=== PATIENT | male | born 1965 | race Caucasian/White ===

== ENCOUNTER 2021-03-21 12:03 | Emergency (ER) | payer OTHER, SELFPAY ==
--- NOTE | ~2021-03-21 | XR_ITS ---
EXAMINATION: XR chest 2V DATE: 03/21/2021 12:27 INDICATION: Cough and congestion TECHNIQUE: PA and lateral views of the chest are obtained. COMPARISON: 02/08/2019 FINDINGS: The lungs are free of acute opacities. There is no pleural effusion or pneumothorax. The ca rdiomediastinal silhouette is normal. There is mild thoracic spondylosis. IMPRESSION: 1. No acute cardiopulmonary abnormality. Reviewed, dictated and finalized at location A. TENDER
[2021-03-21 12:10] VITALS: BP 151/85; PULSE 103; RESP 20; TEMP 37.5; O2SAT 99
--- NOTE | 2021-03-21 12:14 | ED.URI ---
HPI - URI/Sore Throat General Chief Complaint: Upper Respiratory Infection Stated Complaint: Cough/Chest Congestion Time Seen by Provider: 03/21/21 12:17 Source: patient and family History of Present Illness HPI Narrative: patient presents with a cough. cough is worse at night. Patient had Covid last month and can not get rid of his cough. No shortness of breath and no chest pain. PCP prescribed Tessalon pearls with minimal improvement in cough. Related Data Home Medications Medication Instructions Recorded Confirmed atorvastatin 03/21/21 trazodone 100 mg PO HS 03/21/21 03/21/21 venlafaxine 75 mg PO DAILY 03/21/21 03/21/21 Allergies Allergy/AdvReac Type Severity Reaction Status Date / Time No Known Allergies Allergy Verified 03/21/21 12:36 Review of Systems Review of Systems: CONSTITUTIONAL: Denies fever, chills, or sweats. EYES: Denies visual changes, redness, or discharge. ENT: Denies rhinorrhea, congestion, sore throat, or otalgia. CARDIOVASCULAR: Denies chest pain, palpitations, or edema. RESPIRATORY: Denies cough or dyspnea. GASTROINTESTINAL: Denies abdominal pain, nausea, vomiting, or diarrhea. GENITOURINARY: Denies dysuria or hematuria. SKIN: Denies rash or itching. MUSCULOSKELETAL: Denies back pain, joint pain, or myalgia. NEUROLOGIC: Denies headache, numbness, or weakness. PSYCHIATRIC: Denies anxiety or depression. [facility] Past Medical History Medical History (Updated 03/21/21 @ 12:21 by HAO Hubbard) Encounter for general adult medical examination without abnormal findings Essential (primary) hypertension ESTRELLITA (generalized anxiety disorder) Hypertriglyceridemia Insomnia Labral tear of shoulder, degenerative Osteoarthritis of right acromioclavicular joint Panic attack Partial tear of right rotator cuff Psychophysiological insomnia Surgical History Surgical History History of removal of cyst Family History Family History (Updated 09/22/20 @ 16:22 by Nabila Mercado, PATucker) Sibling Hypertension Patient's brother is Heart disease Mother Patient's mother is in good health Father Family history of malignant neoplasm, Onset Age: 65 Patient's father is Leukemia Hypertension Diabetes mellitus Social History Social History Social History: Second hand tobacco smoke exposure: No Alcohol intake: current Drinks per week: 1 Substance use: never Substance use type: does not use Gender identity (if verbalized by the patient): Male Sexual Orientation (if Verbalized by the Patient): Straight or Heterosexual Comments At time of signature, agree with nursing past medical, surgical, social and family history. There is no relevant family history pertinent to the presenting complaint Exam Narrative: GENERAL: Well-appearing, well-nourished, and in no acute distress. HEAD: Normocephalic, atraumatic. EYES: PERRLA and EOMI. ENT: Nares clear, no rhinorrhea or epistaxis. Mucous membranes moist. NECK: Supple. CHEST: Clear to auscultation. No respiratory distress. HEART: Regular rate and rhythm. No murmur heard. Normal peripheral pulses. ABDOMEN: Soft, nontender, nondistended, normal active bowel sounds. EXTREMITIES: Normal range of motion. No edema. SKIN: Warm, dry, no rash. NEURO: No focal deficits. Alert and oriented x3. [place] Coma Scale Eye Opening: Spontaneous 4 June Coma Scale Motor: Obeys Commands 6 [place] Coma Scale Verbal: Oriented 5 June Coma Scale Total 15 Course Course Level of Care: Express Care Visit Vital Signs Vital signs: Vital Signs Temperature 37.5 C 03/21/21 12:10 Pulse Rate 103 H 03/21/21 12:10 Respiratory Rate 20 03/21/21 12:10 Blood Pressure 151/85 H 03/21/21 12:10 Pulse Oximetry 99 03/21/21 12:10 Temperature 37.5 C 03/21/21 12:10 Pulse Rate
== END 2021-03-21 13:05 | disposition home or self-care (01) ==
PROVIDERS: Emergency Provider Nurse Practitioner Family; PCP Family Medicine
DX: J40 Bronchitis, not specified as acute or chronic (principal); I10 Essential (primary) hypertension; F41.1 Generalized anxiety disorder
CPT/HCPCS: 71046; 99213; G0463

== ENCOUNTER 2022-10-26 10:49 | Emergency (ER) | payer OTHER, SELFPAY ==
[2022-10-26 10:55] VITALS: BP 147/95; PULSE 74; RESP 20; TEMP 36.8; O2SAT 100
--- NOTE | 2022-10-26 11:03 | ED.ANIMALBIT ---
HPI - Animal Bite General Chief Complaint: Animal Bite Stated Complaint: dog bite left index finger Source: patient and RN notes reviewed Mode of arrival: ambulatory Limitations: no limitations History of Present Illness HPI narrative: Patient is a 57-year-old male who presents to the [facility] with complaints of dog bite to his left 2nd finger. Patient states that he was taking his son's dog up from the kennel when the dog got to fight with another dog. Patient states that he attempted to break up the 2 dogs, but was bitten by his son's dog on his left 2nd finger. This incident occurred Tuesday morning at 10:00 a.m.. Patient states that he had some leftover penicillin at his house and has taken 5 doses since the incident. States that the dog's shots are up-to-date. He presents with a 2 cm laceration to the proximal phalanx of the left 2nd digit. There is no active bleeding. There is surrounding erythema and swelling. Patient denies recent fevers. Related Data Home Medications Medication Instructions Recorded Confirmed gabapentin 100 mg capsule 100 mg PO TID 10/26/22 10/26/22 meloxicam 15 mg tablet 15 mg PO DAILY 10/26/22 10/26/22 tizanidine 2 mg tablet 2 mg PO Q6-8H PRN MUSCLE SPASMS 10/26/22 10/26/22 venlafaxine 75 mg capsule,extended 75 mg PO BID 10/26/22 10/26/22 release 24 hr Allergies Allergy/AdvReac Type Severity Reaction Status Date / Time No Known Allergies Allergy Verified 10/26/22 11:09 Review of Systems Review of Systems: CONSTITUTIONAL: Denies fever, chills, or sweats. EYES: Denies visual changes, redness, or discharge. ENT: Denies otalgia and sore throat CARDIOVASCULAR: Denies chest pain, palpitations, or edema. RESPIRATORY: Denies cough or dyspnea. GASTROINTESTINAL: Denies abdominal pain, nausea, vomiting, or diarrhea. GENITOURINARY: Denies dysuria or hematuria. SKIN: Denies rash or itching. Reports dog bite to left 2nd finger. MUSCULOSKELETAL: Denies back pain, joint pain, or myalgia. NEUROLOGIC: Denies headache, numbness, or weakness. Pertinent positives per HPI. [facility] Past Medical History Medical History Encounter for general adult medical examination without abnormal findings Essential (primary) hypertension ESTRELLITA (generalized anxiety disorder) Hypertriglyceridemia Insomnia Labral tear of shoulder, degenerative Osteoarthritis of right acromioclavicular joint Panic attack Partial tear of right rotator cuff Psychophysiological insomnia Surgical History Surgical History History of removal of cyst Family History Family History Sibling Hypertension Patient's brother is Heart disease Mother Patient's mother is in good health Father Family history of malignant neoplasm, Onset Age: 65 Patient's father is Leukemia Hypertension Diabetes mellitus Social History Social History Social History: Smoking status: Current every day smoker Second hand tobacco smoke exposure: No Alcohol intake: current Drinks per week: 1 Substance use: never Substance use type: does not use Living arrangements: with family Occupation/Education: occupation Gender identity (if verbalized by the patient): Male Sexual Orientation (if Verbalized by the Patient): Straight or Heterosexual Comments At the time of my signature, I reviewed and agree with the nursing past medical, surgical, social, and family history. There is no relevant family history pertinent to the patient complaint. Exam Narrative: GENERAL: This is a well-nourished, well-developed patient, in no apparent distress. HEAD: normocephalic, atraumatic. EYES: Sclera clear/white. Vision is grossly intact. EARS: External ears normal. Hear
== END 2022-10-26 11:20 | disposition home or self-care (01) ==
PROVIDERS: Emergency Provider Nurse Practitioner
DX: S61.211A Laceration without foreign body of left index finger without damage to nail, initial encounter (principal); W54.0XXA Bitten by dog, initial encounter; F17.200 Nicotine dependence, unspecified, uncomplicated; I10 Essential (primary) hypertension; E78.1 Pure hyperglyceridemia; M19.011 Primary osteoarthritis, right shoulder; F41.1 Generalized anxiety disorder; F41.0 Panic disorder [episodic paroxysmal anxiety]
CPT/HCPCS: 99213; G0463

== ENCOUNTER 2022-10-27 17:28 | Emergency (ER) | payer OTHER, SELFPAY ==
--- NOTE | 2022-10-27 17:54 | PC.NURSE ---
Pt did not answer with call for medical parasitologist
== END 2022-10-27 18:06 | disposition left against medical advice (07) ==
LOC: ANHED 18:01
DX: Z53.21 Procedure and treatment not carried out due to patient leaving prior to being seen by health care provider (principal)
CPT/HCPCS: 99199

== ENCOUNTER 2022-10-27 18:08 | Emergency (ER) | payer OTHER, SELFPAY ==
[2022-10-27 18:09] VITALS: BP 135/104; PULSE 86; RESP 20; TEMP 36.9; O2SAT 97
--- NOTE | 2022-10-27 18:10 | ED.ANIMALBIT ---
HPI - Animal Bite General Chief Complaint: Animal Bite Stated Complaint: Dog bite Time Seen by Provider: 10/27/22 18:10 Source: patient and RN notes reviewed Mode of arrival: ambulatory Limitations: no limitations History of Present Illness HPI narrative: patient was bit by household pad on the left index finger. He waited 3 days before he went to a urgent care yesterday morning where he was started on Augmentin, has only had 3 doses so far. Now 2 days later he continues to have swelling pain in his left index finger is getting worse more tender more red. complaint: animal bite Onset (ago): day(s) (4) Animal: dog Description of animal: household pet Mechanism: bite Location - Extremities: Left: hand ( base of index finger) Pain description: sharp and constant Context: playing with animal Associated symptoms: discharge from wound Treatments prior to arrival: other ( oral antibiotic) Related Data Home Medications Medication Instructions Recorded Confirmed gabapentin 100 mg capsule 100 mg PO TID 10/26/22 10/27/22 tizanidine 2 mg tablet 2 mg PO Q6-8H PRN MUSCLE SPASMS 10/26/22 10/27/22 venlafaxine 75 mg capsule,extended 75 mg PO BID 10/26/22 10/27/22 release 24 hr (Effexor XR) trazodone 100 mg tablet 100 mg PO HS 10/27/22 10/27/22 Allergies Allergy/AdvReac Type Severity Reaction Status Date / Time No Known Allergies Allergy Verified 10/27/22 18:35 Review of Systems Review of Systems: All systems reviewed & are unremarkable except as noted in HPI and below Constitutional: Constitutional: Denies chills and Denies fever(s) PMFSH Past Medical History Medical History Encounter for general adult medical examination without abnormal findings Essential (primary) hypertension ESTRELLITA (generalized anxiety disorder) Hypertriglyceridemia Insomnia Labral tear of shoulder, degenerative Osteoarthritis of right acromioclavicular joint Panic attack Partial tear of right rotator cuff Psychophysiological insomnia Surgical History Surgical History History of removal of cyst Family History Family History Sibling Hypertension Patient's brother is Heart disease Mother Patient's mother is in good health Father Family history of malignant neoplasm, Onset Age: 65 Patient's father is Leukemia Hypertension Diabetes mellitus Social History Social History Social History: Smoking status: Current every day smoker Second hand tobacco smoke exposure: No Alcohol intake: current Drinks per week: 1 Substance use: never Substance use type: does not use Living arrangements: with family Occupation/Education: occupation Gender identity (if verbalized by the patient): Male Sexual Orientation (if Verbalized by the Patient): Straight or Heterosexual Exam Const: General: healthy appearing, no acute distress and alert Nutritional Appearance: well nourished Orientation/consciousness: patient oriented x3 Limitations: no limitations HENMT: Head: normal to inspection Ears: external ears normal Face/Nose/Sinus: Normal external nose present Face and sinus: normal facial exam Mouth: Yes moist mucous membranes Eyes: Conjunctivae: conjunctivae normal Pupils: Equal, round and reactive pupils present EOM: EOMs intact bilaterally Neck: Neck: normal visual inspection Resp: Effort & Inspection: normal respiratory effort Auscultation: clear to auscultation bilaterally Cardio: Rate: regular rate Rhythm: regular rhythm GI: GI Palp: Yes Soft to palpation and No Tenderness to palpation present (GI) Auscultation: normal bowel sounds Back/Spine/Pelvis: Cervical Spine: cervical ROM normal Thoracic/Lumbar Spine: thoraco-lumbar ROM normal Skin: Ge
[2022-10-27 19:19] VITALS: BP 130/99; PULSE 84; RESP 20; TEMP 36.7; O2SAT 98
== END 2022-10-27 19:21 | disposition home or self-care (01) ==
LOC: CHSED 19:11
PROVIDERS: Emergency Provider Emergency Medicine
DX: S61.251A Open bite of left index finger without damage to nail, initial encounter (principal); L03.012 Cellulitis of left finger; I10 Essential (primary) hypertension; F17.200 Nicotine dependence, unspecified, uncomplicated; W54.0XXA Bitten by dog, initial encounter
CPT/HCPCS: 99282

== ENCOUNTER 2024-06-06 15:38 | Emergency (ER) | payer OTHER, SELFPAY ==
--- NOTE | 2024-06-06 15:40 | ED.WOUNDLAC ---
HPI - Wound/Laceration General Chief Complaint: Skin/Abscess/Foreign Body Stated Complaint: lac Time Seen by Provider: 06/06/24 15:39 Source: patient Mode of arrival: ambulatory Limitations: no limitations History of Present Illness HPI narrative: 59-year-old male with a history anxiety panic attack gastritis dyslipidemia hypertension presents to the ED with -- left thumb laceration. full-thickness laceration measuring 3 status the tip of left thumb. Chest prior to coming to the ED. 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 No other injuries noted. Up-to-date on tetanus immunization Onset (ago): hour(s) ( 1 hour ago) Extremity Location: Left: hand Body four view annotation:  1. 3 cm full-thickness laceration on the tip of the left thumb Place: work Patient tetanus UTD: Yes Context: accidental Associated symptoms: pain Related Data Home Medications ?Medication ?Instructions ?Recorded ?Confirmed ?Last Taken ?Type venlafaxine 75 mg capsule,extended 150 mg PO BID 10/26/22 10/27/22 Unknown History release 24 hr (Effexor XR) trazodone 100 mg tablet 100 mg PO HS 10/27/22 10/27/22 Unknown History Allergies Allergy/AdvReac Type Severity Reaction Status Date / Time No Known Allergies Allergy Verified 06/06/24 15:39 Review of Systems Review of Systems: All systems reviewed & are unremarkable except as noted in HPI and below PMFSH Past Medical History Medical History Insomnia Hypertriglyceridemia Labral tear of shoulder, degenerative Partial tear of right rotator cuff Osteoarthritis of right acromioclavicular joint Encounter for general adult medical examination without abnormal findings Essential (primary) hypertension ESTRELLITA (generalized anxiety disorder) Panic attack Psychophysiological insomnia Surgical History Surgical History History of removal of cyst Family History Family History Sibling Hypertension Patient's brother is Heart disease Mother Patient's mother is in good health Father Family history of malignant neoplasm, Onset Age: 65 Patient's father is Leukemia Hypertension Diabetes mellitus Social History Social History Social History: Smoking status: Current every day smoker Second hand tobacco smoke exposure: No Alcohol intake: current Drinks per week: 1 Substance use: never Substance use type: does not use Living arrangements: with family Occupation/Education: occupation Gender identity (if verbalized by the patient): Male Sexual Orientation (if Verbalized by the Patient): Straight or Heterosexual Exam Narrative: blood pressure 140/94 Const: General: no acute distress Nutritional Appearance: well nourished Orientation/consciousness: patient oriented x3 Limitations: no limitations HENMT: Head: normal to inspection Ears: external ears normal Face/Nose/Sinus: Normal external nose present Face and sinus: normal facial exam Mouth: Yes Normal oral and palatal mucosa present Throat: posterior oropharynx normal Eyes: Conjunctivae: conjunctivae normal Pupils: Equal, round and reactive pupils present EOM: EOMs intact bilaterally Direct Ophthalmoscopy: no photophobia Neck: Neck: normal visual inspection, no lymphadenopathy and no meningeal signs Chest: Chest palpation & inspection: normal inspection of the chest Resp: Effort & Inspection: normal respiratory effort Auscultation: clear to auscultation bilaterally Cardio: Rate: regular rate Rhythm: regular rhythm GI: GI Palp: Yes Soft to palpation Auscultation: normal bowel sounds Back/Spine/Pelvis: Back: no CVA tenderness Skin: General skin exam: normal color Rashes: no rashes Other: left thumb tip has 3 cm full-thickness laceration distal neurovascular bundle is intact. Neuro: General: patient oriented x3, moves all extremities, no meningeal signs, no focal motor deficits and CN's II-XI intact bilaterally Cranial nerves: Yes Nystagmus not present Speech: normal speech Gait exam (Neuro): Normal gait present Extrem: General: normal to inspection and no clubbing, cyanosis or edema Psych: Mental Status: mental status grossly normal Affect: normal affect Course Course Emergency Course: Left thumb laceration status post repair Vital Signs Vital signs: Vital Signs Temperature 37.3 C 06/06/24 15:41 Pulse Rate 83 06/06/24 15:41 Respiratory Rate 18 06/06/24 15:41 Blood Pressure 149/94 H 06/06/24 15:41 Pulse Oximetry 98 06/06/24 15:41 Oxygen Delivery Room Air 06/06/24 15:41 Temperature 37.3 C 06/06/24 15:41 Pulse Rate 83 06/06/24 15:41 Respiratory Rate 18 06/06/24 15:41 Blood Pressure 149/94 H 06/06/24 15:41 Pulse Oximetry 98 06/06/24 15:41 Oxygen Delivery Room Air 06/06/24 15:41 Procedures Laceration Laceration 1: Date: 06/06/24 Time: 16:06 Site: upper extremity Side (If applicable): left ( left thumb tip) Size (cm): 3 Description: irregular Depth: simple, single layer and [id number] Local Anesthetic: lidocaine 1% Amount of anesthesia used (mL): 5 Pre-repair: wound explored ====== Skin Level ====== Skin layer closed with: nylon Size (cm): 3-0 Number of sutures: 5 Technique: running ====== Subcutaneous Layer ====== ====== Muscle Layer ====== ====== Tendon Layer ====== MDM - Wound/Laceration MDM Narrative Medical decision making narrative: thumb laceration Differential Diagnosis Differential diagnosis: Likely abrasion and avulsion of skin Discharge Plan Discharge Clinical Impression: Finger laceration Qualifiers: Encounter type: initial encounter Finger: thumb Damage to nail status: without damage Foreign body presence: without foreign body Laterality: left Qualified Code(s): S61.012A - Laceration without foreign body of left thumb without damage to nail, initial encounter Patient Disposition: Home Condition: Stable Instructions: Antibiotic Form, Finger Laceration (ED) Patient Language: Burkinan Prescriptions: New amoxicillin-pot clavulanate 875-125 mg tablet 1 tablet PO Q12H Qty: 14 0RF No Action trazodone 100 mg tablet 100 mg PO HS Rx Instructions: TAKE 1 TABLET BY MOUTH AT BEDTIME venlafaxine [Effexor XR] 75 mg capsule,extended release 24hr 150 mg PO BID metoprolol succinate 50 mg tablet extended release 24 hr 50 mg PO DAILY Qty: 90 2RF atorvastatin 40 mg tablet 40 mg PO DAILY Qty: 90 2RF Follow-up/Referrals: UNKNOWN,DOCTOR [Primary Care Provider] - Time of Disposition: 16:12
[2024-06-06 15:41] VITALS: BP 149/94; PULSE 83; RESP 18; TEMP 37.3; O2SAT 98
[2024-06-06] MEDS: TETANUS,DIPHTHERIA,AC PERTUSSIS ADULT 0.5 ML (ADACEL) IM (16:19)
--- OUTSIDE RECORDS SUMMARY | 2024-06-06 16:23 | XMS_ITS | Clinical Summary ---
Author Organization [facility] Address [address] [place] [address] Phone Care Team Providers Care Official Court Reporter Name Role Phone Yaritza Durand MD Primary Care Provider [phone] Allergies No known active allergies Medications atorvastatin (LIPITOR) 40 mg tabletIndications: Hyperlipidemia, unspecified hyperlipidemia type Take 1 Tablet (40 mg) by mouth daily. 90 Tablet 3 07/01/19 24 Active metoprolol succinate (TOPROL XL) 50 mg Extended Release 24 hour tabletIndications: HTN (hypertension), benign Take 1 Tablet (50 mg) by mouth daily. 90 Tablet 3 07/01/19 24 Active traZODone (DESYREL) 100 mg tabletIndications: Anxiety Take 1 Tablet (100 mg) by mouth daily at bedtime. 90 Tablet 3 07/01/19 24 Active venlafaxine (EFFEXOR XR) 75 mg Extended Release 24 hour capsuleIndications :Anxiety Take 2 Capsules (150 mg) by mouth daily. 180 Capsule 3 07/01/19 24 Active omeprazole (PriLOSEC) 20 mg Capsule, Delayed Release(E.C.) Take 20 mg by mouth daily. Active gabapentin (NEURONTIN) 100 mg capsule Take 1 Capsule by mouth 3 times daily. 10/27/19 24 Active meloxicam (MOBIC) 15 mg tablet Take 1 Tablet by mouth daily. 12/26/19 24 Active tiZANidine (ZANAFLEX) 2 mg Tablet TAKE 1 TABLET BY MOUTH EVERY 6 - 8 HOURS NEEDED NOT TO EXCEED 3 DOSES IN 24 HOURS 10/27/19 24 Active peg 3350-electrolytes (COLYTE) 240-22.72-6.72 -5.84 gram solution Take 4,000 mL by mouth one time for 1 dose. Follow prescribing physicians instructions ONLY - These were sent via email or Dumbstruck. 4000 mL 03/05/19 25 Active Active Problems Problem Noted Date Diagnosed Date Gastroesophageal reflux disease 10/14/2023 Insomnia 10/14/2023 Osteoarthritis of spine with radiculopathy, cerv ical region 10/14/2023 Spondylosis of lumbar region without myelopathy or radiculopathy 10/14/2023 HTN (hypertension), benign 01/03/2022 Hyperlipidemia 01/03/2022 Anxiety 01/03/2022 Encounters Date Type Department Care Team Description 04/18/2024 External Device Data [facility]STRACTION Provider, Abstract 04/17/2024 External Device Data [facility]STRACTION Provider, Abstract 04/16/2024 External Device Data [facility] Provider, Abstract 03/20/2024 External Device Data [facility] Provider, Abstract 03/20/2024 External Device Data [facility]STRA[facility] Provider, Abstract 03/20/2024 External Device Data [facility]STRA[facility] Provider, Abstract 03/15/2024 Results Follow-Up [facility] [address] [facility] [address] [facility] [address] [place] [address] Mercedez De Los Santos MD PATHOLOGY 03/13/2024 External Device Data [facility] ABSTRACTION Provider, Abstract 03/12/2024 2:30 PM [facility] - 03/12/2024 3:00 PM [facility] Surgery [facility] [address] [place] [address] Mercedez De Los Santos MD COLONOSCOPY 03/12/2024 1:37 PM [facility] Anesthesia Event [facility] [address] [place] [address] Hermila Munoz MD 03/12/2024 12:42 PM [facility] - 03/12/2024 3:15 PM [facility] Hospital Encounter [facility] [address] [place] [address] Mercedez De Los Santos MD Constipation, unspecified constipation type Discharge Disposition: Home or Self Care from Last 3 Months Immunizations Immunization Administration Dates Next Due (TDVAX)(7 YRS UP) TETANUS AN D DIPHTHERIA TOXOIDS, ADSORBED (2 LF OF TETANUS TOXOID AND 2 LF OF DIPHTHERIA TOXOID), 0.5ML (PF), IM 02/07/2019 INFLUENZA VACCINE QUADRIVALENT 6 MOS UP PF IM INFLUENZA VACCINE TRIVALENT SPLIT VIRUS, (6 MOS UP), 0.5ML (PF), IM 01/23/2024 Influenza Seasonal Unspecified Formulation IM ,12/21/2021 PREVNAR (PCV13) pneumococcal 13-valent conjugate Vaccine 03/24/2020,03/03/2020 Family History Medical History Relation Name Comments Heart Attack Brother 1 overweight and ETOH Leukemia Father workedin a [employer] Healthy Mother Relation Name Status Comments Brother 1 Brother 2 Alive Father Mother Alive Sister Alive Social History Tobacco Use Types Packs/Day Years Used Date Smoking Tobacco: Never Passive Smoke Exposure: Never Smokeless Tobacco: Never Tobacco Cessation:Counseling Given: No Alcohol Use Standard Drinks/Week Comments Yes 0 (1 standard drink = 0.6 oz pur e alcohol) 6 beers per month Feeling Safe Answer Date Recorded Are you in a relationship wi th someone who hurts you emotionally and/or physically? No 03/12/2024 Sex and Gender Information Value Date Recorded Sex Assigned at Not on file Legal Sex Male 5:03 AM [facility] Gender Identity Not on file Sexual Orientation Not on file Last Filed Vital Signs Vital Sign Reading Time Taken Comments Blood Pressure 123/85 03/12/2024 3:00 PM [facility] Pulse 57 03/12/2024 3:00 PM [facility] Temperature 36.5 C (97.7 F) 03/12/2024 2:20 PM [facility] Respiratory Rate 14 03/12/2024 3:00 PM [facility] Oxygen Saturation 100% 03/12/2024 3:00 PM [facility] Inhaled Oxygen Concentration - - Weight 99.8 kg (220 lb) 03/12/2024 12:54 PM [facility] Height 182.9 cm (6') 03/12/2024 12:54 PM [facility] Body Mass Index 29.84 03/12/2024 12:54 PM [facility] Plan of Treatment Upcoming Encounters Date Type Department Care Team ([place] Contact Info) Description 10/12/2024 10:00 AM CDT Office Visit [facility] Primary Care - [address] [address] Yaritza Durand MD [address] [facility] [address] [place] [address] Health Maintenance Due Date Last Done Comments Pre-Diabetes and Diabetes Screening 1965 HEPATITIS B VACCINES (1 of 3 - 19+ 3-dose series) 1984 FIT-DNA Q 3 years 2010 FIT/FOBT Q 1 year 2010 Flex Sig/CT Colonography Q 5 years 2010 ZOSTER VACCINE (1 of 2) 2015 DTAP/TDAP/TD VACCINES (1 - Tdap) 02/08/2019 02/07/19 20 Preventative Visit- Commercial 02/08/2024 10/13/2023 COLORECTAL SCREENING 03/12/2034 03/12/2024, 03/12/19 25 Colorectal Cancer Screening 03/12/2034 INFLUENZA VACCINE Completed 01/23/2024, , 12/21/2021, Additional history exists Medical Devices Implanted Type Area Director Learning And Development Device Identifier Shelf Expiration Date Model / Serial / Lot Clip Endo Mantis 2.8mm 235cm [id number] - [id number] Implanted:Qty : 2 on 03/12/2024 by Mercedez De Los Santos MD at [facility] N/A: Cecum [employer] [id number] 02/09/2026 [id number] / / [id number] Procedures Procedure Name Priority Date/Time Associated Diagnosis Comments MD COLONOSCOPY FLX DX W/COLLJ SPEC WHEN PFRMD 03/12/2024 2:30 PM [facility] Constipation, unspecified constipation type Case Notes No blood thinners COLONOSCOPY REPORT 03/12/2024 2: 25 PM [facility] PATHOLOGY Pathology 03/12/2024 1:56 PM [facility] Constipation, unspecified constipation type from Last 3 Months Results * COLONOSCOPY REPORT (03/12/2024 2:25 PM [facility]) Narrative Procedure Note Mercedez De Los Santos MD - 03/12/2024 2:25 PM CST [facility] Endoscopy Patient Name: Julieth Gilmore Procedure Date: 03/12/2024 Date of : 1965 Attending MD: Mercedez De Los Santos MD, Procedure: Colonoscopy Indications: Change in bowel habits Patient Profile: Refer to note in patient chart for documentation of history and physical. Providers: Mercedez De Los Santos MD Referring MD: Yaritza Durand MD Medicines: Monitored Anesthesia Care Complications: No immediate complications. Procedure: Pre-Anesthesia Assessment: - Prior to the procedure, a History and Physical was performed, and patient medications, allergies and sensitivities were reviewed. The patient's tolerance of previous anesthesia was reviewed. - The risks and benefits of the procedure and the sedation options and risks were discussed with the patient. All questions were answered and informed consent was obtained. - ASA and MP per anesthesia records. See the other procedure note for documentation of the pre-procedure assessment Informed consent was obtained for the procedure, including moderate sedation after risks were discussed. Based on the pre-procedure assessment, including review of the patient's medical history, medications, allergies, and review of systems, the patient was deemed to be an appropriate candidate for sedation. A timeout was performed. Continuous ECG monitoring, pulse oximetry, blood pressure monitoring, and direct observation were performed. The was introduced through the anus and advanced to the cecum, identified by appendiceal orifice and ileocecal valve. The colonoscopy was performed without difficulty. The patient tolerated the procedure well. The quality of the bowel preparation was evaluated using the BBPS ([place] Bowel Preparation Scale) with scores of: Right Colon = 3, Transverse Colon = 3 and Left Colon = 3 (entire mucosa seen well with no residual staining, small fragments of stool or opaque liquid). The total BBPS score equals 9. Findings: The perianal and digital rectal examinations were normal. A 15 mm polyp was found in the cecum. The polyp was flat. Preparations were made for mucosal resection. Demarcation of the lesion was performed with thermal marking with the tip of a snare to clearly identify the boundaries of the lesion. 9 mL of EverLift was injected with partial lift of the lesion from the muscularis propria. Snare mucosal resection was performed (hot and cold) in piecemeal. Small residual tissue was removed with cold biopsy forcep. A medium-sized area was resected. Resection and retrieval were complete. Resected tissue margins were examined and clear of polyp tissue. To prevent bleeding after the polypectomy, two hemostatic clips were successfully placed (MR conditional). Clip scout: [employer]. There was no bleeding at the end of the procedure. A 13 mm polyp was found in the sigmoid colon. The polyp was pedunculated. The polyp was removed with a hot snare. Resection and retrieval were complete. Non-bleeding external hemorrhoids were found during retroflexion. The hemorrhoids were small. Impression: - One 15 mm polyp in the cecum, removed with mucosal resection. Resected and retrieved. Clips (MR conditional) were placed. Clip scout: [employer]. - One 13 mm polyp in the sigmoid colon, removed with a hot snare. Resected and retrieved. - Non-bleeding external hemorrhoids. - Mucosal resection was performed. Resection and retrieval were complete. Recommendation: - No aspirin, ibuprofen, naproxen, or other non-steroidal anti-inflammatory drugs for 2 weeks after polyp removal. - Await pathology results. - Repeat colonoscopy in 6 months for surveillance based on pathology results. - High fiber diet. - Return to primary care physician as previously scheduled. - Return to GI clinic as previously scheduled. - The findings and recommendations were discussed with the patient. - Discharge patient to home (with escort). Procedure Code(s): --- Professional --- 33971, Colonoscopy, flexible; with endoscopic mucosal resection 21123, 59, Colonoscopy, flexible; with removal of tumor(s), polyp(s), or other lesion(s) by snare technique CPT copyright 2020 [employer]. All rights reserved. The codes documented in this report are preliminary and upon automatic centrifugal station operator review may be revised to meet current compliance requirements. Attending Participation: I personally performed the entire procedure. Mercedez De Los Santos MD 03/12/2024 2:25:05 PM This report has been signed electronically. Number of Addenda: [id number] [place] [address] Mercedez De Los Santos MD GI PROCEDURE ORDERABLES Final Result * PATHOLOGY (03/12/2024 1:56 PM [facility]) CASE REPORT Surgical Pathology Report Case: [id number] Authorizing Provider: Mercedez De Los Santos MD Collected: 03/12/2024 01:56 PM Ordering Location: [facility] Received: 03/13/2024 09:50 AM Endoscopy Services Pathologist: Alverto Nance MD Specimens: A) - Cecum, polyp B) - Colon, sigmoid, polyp 03/15/2024 10:01 AM [facility] FINAL DIAGNOSIS Cecum, biopsy - Tubular adenoma, fragments of Colon, sigmoid, biopsy - Tubular adenoma - Margins are negative for dysplasia aw 03/15/2024 10:01 AM [facility] at [address] [facility] GROSS DESCRIPTION A. Received in formalin labeled with the patient's name and cecum polyp are multiple chandra-pink tissue fragments measuring 2.5 x 1.2 x 0.3 cm in aggregate. The specimen is entirely submitted as A1. B. Received in formalin labeled with the patient's name and sigmoid colon polyp is a chandra-pink polyp measuring 1.1 cm in greatest dimension. The specimen is inked black and bisected. The specimen is bisected and entirely submitted as B1. 03/15/2024 10:01 AM [facility] MICROSCOPIC DESCRIPTION Microscopic examination substantiates the diagnosis. Dr. Resendez has reviewed this case and concurs. 03/15/2024 10:01 AM [facility] OPERATIVE PROCEDURE 1: COLONOSCOPY 03/15/2024 10:01 AM [facility] CLINICAL INFORMATION Constipation, unspecified constipation type [K59.00] K59.00-Constipation, unspecified constipation type 03/15/2024 10:01 AM [facility] COMMENT Immunohistochemical stains were performed, if any, and interpreted at [facility] ([facility]) Laboratory with appropriately staining controls. This test was developed and its performance characteristics determined by [facility] Lab. It has not been cleared or approved by the Food and Drug Administration. The FDA does not require this test to go through premarket FDA review. This test is used for clinical purposes, and should not be regarded as investigational or for research. This lab is certified under CLIA to perform high complexity testing. Estrogen and progesterone receptor staining has not been validated in our lab on decalcified tissue; decalcification may decrease immunoreactivity for these and other antigens. 03/15/2024 10:01 AM [facility] Tissue (Cecum) Collection / Unknown 03/12/2024 1:56 PM [facility] 03/13/2024 9:50 AM [facility] Tissue specimen (specimen) SIGMOID COLON STRUCTURE / Unknown 03/12/2024 2:13 PM [facility] 03/13/2024 9:50 AM [facility] Mercedez De Los Santos MD PATHOLOGY/CYTOLOGY ORDERABLES Final Result [facility] CLIA# [id number] [address] [place] [address] from Last 3 Months Insurance [employer] CHOICE POS II Care Teams Official Court Reporter Relationship Specialty Start Date End Date Yaritza Durand MD [address] [place] [phone] PCP - General Internal Medicine 12/21/21
--- OUTSIDE RECORDS SUMMARY | 2024-06-06 16:23 | XMS_ITS | CONTINUITY OF CARE DOCUMENT ---
Author Name elyadeel mirza Address Unknown Organization [facility] Address [address] [place] [address] Phone [phone] Care Team Providers Care Unmanned Equipment Operator Name Role Phone Jameel HURLEY, Fatoumata Unavailable TODD GIL MD Unavailable Reji Rivas MD Unavailable INSURANCE PROVIDERS Payer name Policy type / Coverage type [place] red constitution party ID COVENTRY- OPEN ACCESS/PPO Other [id number]
--- OUTSIDE RECORDS SUMMARY | 2024-06-06 16:41 | XMS_ITS | CONTINUITY OF CARE DOCUMENT ---
Author Name elyadeel mirza Address Unknown Organization [facility] Address [address] [facility] [address] [place] [address] Phone [phone] Care Team Providers Care Surgical Appliances Salesperson Name Role Phone Jameel HURLEY, Fatoumata Unavailable [phone] TODD GIL MD Unavailable [phone] Reji Rivas MD Unavailable [phone] INSURANCE PROVIDERS Payer name Policy type / Coverage type [place] red democrat ID COVENTRY- OPEN ACCESS/PPO Other [id number]
== END 2024-06-06 16:24 | disposition home or self-care (01) ==
LOC: CHSED 16:20
PROVIDERS: Emergency Provider Internal Medicine Critical Care Medicine
DX: S61.012A Laceration without foreign body of left thumb without damage to nail, initial encounter (principal); F17.200 Nicotine dependence, unspecified, uncomplicated; Z23 Encounter for immunization; W27.8XXA Contact with other nonpowered hand tool, initial encounter
CPT/HCPCS: 12002; 90471; 90715; 99283